=== PATIENT | male | born 1975 | race Caucasian/White ===

== ENCOUNTER 2018-02-04 23:26 | Emergency (ER) | payer SELFPAY ==
[~2018-02-04] VITALS: Ht 185.4 cm; Wt 95.3 kg
[2018-02-04 23:37] VITALS: BP 156/98
[2018-02-05 00:16] LABS: BASOPHILS % (AUTO) 1.1 % (0.0-2.0); EOSINOPHILS % (AUTO) 0.4 % (0.0-3.0); HEMATOCRIT 47.1 % (42.0-52.0); HEMOGLOBIN 16.2 G/DL (14.2-18.0); LYMPHOCYTES % (AUTO) 22.9 % (20.0-45.0); MEAN CORPUSCULAR VOLUME 92 FL (80-99); MONOCYTES % (AUTO) 6.5 % (1.0-10.0); PLATELET COUNT 187 K/UL (150-450); RED BLOOD COUNT 5.09 M/UL (4.70-6.10); RED CELL DISTRIBUTION WIDTH 13.2 % (11.6-14.8); WHITE BLOOD COUNT 8.8 K/UL (4.8-10.8)
[2018-02-05 00:28] LABS: ANION GAP 9 mmol/L (5-15); BLOOD UREA NITROGEN 17 mg/dL (7-18); CALCIUM 8.2 MG/DL (8.5-10.1); CARBON DIOXIDE 32 MMOL/L (21-32); CHLORIDE 105 MMOL/L (98-107); POTASSIUM 3.7 MMOL/L (3.5-5.1); SODIUM 145 MMOL/L (136-145)
[2018-02-05 00:32] LABS: ALANINE AMINOTRANSFERASE 36 U/L (12-78); ALBUMIN 3.9 G/DL (3.4-5.0); ALBUMIN/GLOBULIN RATIO 1.1 (1.0-2.7); ALKALINE PHOSPHATASE 67 U/L (46-116); ASPARTATE AMINO TRANSFERASE 31 U/L (15-37); BILIRUBIN,TOTAL 0.3 MG/DL (0.2-1.0)
--- NOTE | 2018-02-05 01:39 | Emergency Room Report ---
History of Present Illness General Chief Complaint: Alcohol Intoxication Source: Friend, EMS Present Illness HPI Is a 42-year-old male brought in by EMS for alcohol intoxication. 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 Also has a history of alcohol abuse with previous withdrawal symptoms. He was out drinking with his friends. His friend said that he was drinking a whole lot of liquor. Patient felt uncomfortable staying at home because he were about DTs and withdrawal. So he has decided to call 911. Patient has no trauma. History is limited on him because of his intoxication. Allergies: Coded Allergies: No Known Allergies (Unverified , 02/04/18) Patient History Past Medical History: see triage record, old chart reviewed Past Surgical History: other Pertinent Family History: none Social History: Denies: smoking Immunizations: other Reviewed Nursing Documentation: PMH: Agreed; PSxH: Agreed Nursing Documentation-PMH Past Medical History: No History, Except For Review of Systems Eye: Denies: eye pain, blurred vision ENT: Denies: ear pain, nose congestion, throat swelling Respiratory: Denies: cough, shortness of breath Cardiovascular: Denies: chest pain, palpitations Gastrointestinal: Denies: abdominal pain, diarrhea, nausea, vomiting Musculoskeletal: Denies: back pain, joint pain Skin: Denies: rash Neurological: Denies: headache, numbness Endocrine: Denies: increased thirst, increased urine Hematologic/Lymphatic: Denies: easy bruising All Other Systems: negative except mentioned in HPI Physical Exam Vital Signs Date Time Temp Pulse Resp B/P (MAP) Pulse Ox O2 Delivery O2 Flow Rate FiO2 02/04/18 23:24 98.9 98 16 156/98 98 Room Air 99.0 vitals with high blood pressure Sp02 EP Interpretation: reviewed, normal General Appearance: well appearing, no apparent distress, alert, lethargic - Secondary to intoxication Head: normocephalic, atraumatic Eyes: bilateral eye PERRL, bilateral eye EOMI ENT: hearing grossly normal, normal pharynx Neck: full range of motion, supple, no meningismus Respiratory: chest non-tender, lungs clear, normal breath sounds Cardiovascular #1: regular rate, rhythm, no murmur Gastrointestinal: normal bowel sounds, non tender, no mass, no organomegaly, no bruit, non-distended Musculoskeletal: back normal, normal range of motion Neurologic: grossly normal Psychiatric: mood/affect normal Skin: warm/dry Medical Decision Making Diagnostic Impression: Primary Impression: Acute alcoholic intoxication Qualified Codes: F10.929 - Alcohol use, unspecified with intoxication, unspecified ER Course Patient with alcohol intoxication. No evidence of suicidal thoughts or homicidal thought. We'll observe until clinical sobriety. We'll probably put him on Librium on discharge. Last Vital Signs Date Time Temp Pulse Resp B/P (MAP) Pulse Ox O2 Delivery O2 Flow Rate FiO2 02/04/18 23:37 99.0 16 156/98 98 Room Air 99.0 02/04/18 23:24 98 Status: improved Disposition: HOME, SELF-CARE Condition: Stable Scripts Chlordiazepoxide (Chlordiazepoxide HCl) 25 Mg Capsule 25 MG ORAL THREE TIMES A DAY, #21 CAP 0 Refills Prov: SOLANGE AGUSTIN M.D. 02/05/18 Referrals: NOT CHOSEN IPA/,REFERRING (PCP) Patient Instructions: Alcohol Intoxication, [id number] Additional Instructions: Abstain from alcohol. Go to rehabilitation[facility] Return if worse. SOLANGE AGUSTIN M.D. Feb 05, 2018 01:39
[2018-02-05] MEDS ORDERED: LIBRIUM25 MG ORAL (01:40)
[2018-02-05 06:50] VITALS: BP 116/78
== END 2018-02-05 06:50 | disposition home or self-care (01) ==
LOC: EDBD 23:26 → EMR 23:41
DX: F10.929 Alcohol use, unspecified with intoxication, unspecified (principal); F43.10 Post-traumatic stress disorder, unspecified
CPT/HCPCS: 36415; 80053; 85025; 96360; 99284; G0480; 80329

== ENCOUNTER 2018-03-01 22:56 | Emergency (ER) | payer SELFPAY ==
[~2018-03-01] VITALS: Ht 177.8 cm; Wt 83.9 kg
[~2018-03-01 22:56] MED LIST: LIBRIUM25 MG ORAL
[2018-03-01 23:05] VITALS: BP 133/86
[2018-03-01] MEDS ORDERED: LORazepam Inj 2mg/ml 1ml IV ONE (23:45)
[2018-03-02 00:05] LABS: BASOPHILS % (AUTO) 1.7 % (0.0-2.0); EOSINOPHILS % (AUTO) 0.1 % (0.0-3.0); HEMATOCRIT 52.5 % (42.0-52.0); LYMPHOCYTES % (AUTO) 29.8 % (20.0-45.0); MEAN CORPUSCULAR VOLUME 93 FL (80-99); MONOCYTES % (AUTO) 7.5 % (1.0-10.0); NEUTROPHILS % (AUTO) 60.9 % (45.0-75.0); PLATELET COUNT 385 K/UL (150-450); RED BLOOD COUNT 5.67 M/UL (4.70-6.10); RED CELL DISTRIBUTION WIDTH 12.1 % (11.6-14.8); WHITE BLOOD COUNT 6.6 K/UL (4.8-10.8)
[2018-03-02 00:07] LABS: ANION GAP 8 mmol/L (5-15); BLOOD UREA NITROGEN 11 mg/dL (7-18); CALCIUM 8.8 MG/DL (8.5-10.1); CARBON DIOXIDE 33 MMOL/L (21-32); CHLORIDE 94 MMOL/L (98-107); CREATININE 0.9 MG/DL (0.55-1.30); POTASSIUM 3.4 MMOL/L (3.5-5.1); SODIUM 134 MMOL/L (136-145)
[2018-03-02 00:09] LABS: HEMOGLOBIN 18.4 G/DL (14.2-18.0)
[2018-03-02 00:12] LABS: ALANINE AMINOTRANSFERASE 32 U/L (12-78); ALBUMIN 4.3 G/DL (3.4-5.0); ALKALINE PHOSPHATASE 55 U/L (46-116); ASPARTATE AMINO TRANSFERASE 29 U/L (15-37); BILIRUBIN,TOTAL 0.3 MG/DL (0.2-1.0)
--- NOTE | 2018-03-02 00:39 | Emergency Room Report ---
History of Present Illness General Chief Complaint: Alcohol Intoxication Source: Patient Present Illness HPI 42-year-old male presents ED for evaluation. States that he was drinking for 7 days straight and stop drinking today. States he feels shaky and feels like he is going through withdrawals. Denies drug use. Denies suicidal or homicidal ideation. Denies hearing voices. No other aggravating relieving factors. Denies any other associated symptoms Allergies: Coded Allergies: No Known Allergies (Unverified , 03/01/18) Patient History Past Medical History: HTN, psych hx Past Surgical History: none Pertinent Family History: none Social History: Reports: alcohol use; Denies: smoking, drug use Immunizations: UTD Reviewed Nursing Documentation: PMH: Agreed; PSxH: Agreed Nursing Documentation-PMH Past Medical History: No History, Except For Hx Hypertension: Yes Review of Systems All Other Systems: negative except mentioned in HPI Physical Exam Vital Signs Date Time Temp Pulse Resp B/P (MAP) Pulse Ox O2 Delivery O2 Flow Rate FiO2 03/01/18 22:59 98.6 102 16 133/86 96 98.6 03/01/18 23:05 Room Air Sp02 EP Interpretation: reviewed, normal General Appearance: no apparent distress, alert, GCS 15, non-toxic Head: normocephalic, atraumatic Eyes: bilateral eye normal inspection, bilateral eye PERRL ENT: hearing grossly normal, normal pharynx, no angioedema, normal voice Neck: full range of motion, supple/symm/no masses Respiratory: chest non-tender, lungs clear, normal breath sounds, speaking full sentences Cardiovascular #1: regular rate, rhythm, no edema Cardiovascular #2: 2+ carotid (R), 2+ carotid (L), 2+ radial (R), 2+ radial (L) , 2+ dorsalis pedis (R), 2+ dorsalis pedis (L) Gastrointestinal: normal bowel sounds, non tender, soft, non-distended, no guarding, no rebound Rectal: deferred Genitourinary: normal inspection, no CVA tenderness Musculoskeletal: back normal, gait/station normal, normal range of motion, non- tender Neurologic: alert, oriented x3, responsive, motor strength/tone normal, sensory intact, speech normal Psychiatric: judgement/insight normal, memory normal, mood/affect normal, no suicidal/homicidal ideation Reflexes: 3+ bicep (R), 3+ bicep (L), 3+ tricep (R), 3+ tricep (L), 3+ knee (R) , 3+ knee (L) Skin: normal color, no rash, warm/dry, well hydrated Lymphatic: no adenopathy Medical Decision Making Diagnostic Impression: Primary Impression: Acute alcoholic intoxication Qualified Codes: F10.929 - Alcohol use, unspecified with intoxication, unspecified ER Course Hospital Course 42-year-old male presents ED complaining of shaking, stating he is in withdrawal. Chronic history of alcohol use Differential diagnoses include: Alcohol intoxication, drug abuse, opioid withdrawal, alcohol withdrawal, dehydration, drug seeking behavior Clinical course Patient placed on stretcher. On language specialist. After initial history and physical I ordered labs, IV fluids, Ativan Labs reviewed-electrolytes okay, hemoglobin/hematocrit stable, no leukocytosis, alcohol level > 400, aspirin/Tylenol levels negative given librium. no signs of acute withdrawal or DTs. patient can be safely discharged to home Patient states he will follow-up with the [facility] for detox services. declined any referrals here i. I feel this is a highly complex case requiring extensive working including EKG/Rhythm strip, Xray/CT/US, Blood/urine lab work, repeat exams while in ED, and administration of strong opiates/narcotics for pain control, admission to hospital or close patient follow up. Diagnosis - alcohol intoxication Stable and discharged to home with prescription for Librium. Followup with PMD. Return to ED if symptoms recur or worsen Labs Test 03/01/18 23:53 White Blood Count 6.6 K/UL (4.8-10.8) Red Blood Count 5.67 M/UL (4.70-6.10) Hemoglobin 18.4 G/DL (14.2-18.0) Hematocrit 52.5 % (42.0-52.0) Mean Corpuscular Volume 93 FL (80-99) Mean Corpuscular Hemoglobin 32.4 PG (27.0-31.0) Mean Corpuscular Hemoglobin Concent 34.9 G/DL (32.0-36.0) Red Cell Distribution Width 12.1 % (11.6-14.8) Platelet Count 385 K/UL (150-450) Mean Platelet Volume 6.5 FL (6.5-10.1) Neutrophils (%) (Auto) 60.9 % (45.0-75.0) Lymphocytes (%) (Auto) 29.8 % (20.0-45.0) Monocytes (%) (Auto) 7.5 % (1.0-10.0) Eosinophils (%) (Auto) 0.1 % (0.0-3.0) Basophils (%) (Auto) 1.7 % (0.0-2.0) Sodium Level 134 MMOL/L (136-145) Potassium Level 3.4 MMOL/L (3.5-5.1) Chloride Level 94 MMOL/L (98-107) Carbon Dioxide Level 33 MMOL/L (21-32) Anion Gap 8 mmol/L (5-15) Blood Urea Nitrogen 11 mg/dL (7-18) Creatinine 0.9 MG/DL (0.55-1.30) Estimat Glomerular Filtration Rate > 60 mL/min (>60) Glucose Level 135 MG/DL (74-106) Calcium Level 8.8 MG/DL (8.5-10.1) Total Bilirubin 0.3 MG/DL (0.2-1.0) Aspartate Amino Transf (AST/SGOT) 29 U/L (15-37) Alanine Aminotransferase (ALT/SGPT) 32 U/L (12-78) Alkaline Phosphatase 55 U/L (46-116) Total Protein 8.5 G/DL (6.4-8.2) Albumin 4.3 G/DL (3.4-5.0) Globulin 4.2 g/dL Albumin/Globulin Ratio 1.0 (1.0-2.7) Salicylates Level 0.3 ug/mL (2.8-20) Acetaminophen Level < 2 MCG/ML (10-30) Serum Alcohol 402 mg/dL Last Vital Signs Date Time Temp Pulse Resp B/P (MAP) Pulse Ox O2 Delivery O2 Flow Rate FiO2 03/01/18 23:05 98.6 102 16 133/86 96 Room Air 98.6 Status: improved Disposition: HOME, SELF-CARE Condition: Stable Scripts Chlordiazepoxide (Chlordiazepoxide HCl) 25 Mg Capsule 25 MG ORAL THREE TIMES A DAY, #21 CAP 0 Refills Prov: Tarun Mcnally MD 03/02/18 Referrals: NOT CHOSEN IPA/,REFERRING (PCP) Tarun Mcnally MD Mar 02, 2018 00:39
[2018-03-02] MEDS ORDERED: LIBRIUM25 MG ORAL (01:24)
[2018-03-02 01:30] VITALS: BP 128/81
[2018-03-02] MEDS ORDERED: chlordiazePOXIDE 25mg Cap ORAL ONE (01:30)
== END 2018-03-02 01:33 | disposition home or self-care (01) ==
LOC: EMR 23:20
DX: F10.129 Alcohol abuse with intoxication, unspecified (principal); I10 Essential (primary) hypertension
CPT/HCPCS: 36415; 80053; 85025; 96361; 96374; 99284; G0480; 80329

== ENCOUNTER 2018-05-26 12:09 | Inpatient (IN) | payer OTHER ==
[~2018-05-26] VITALS: Ht 175.3 cm; Wt 81.6 kg
--- NOTE | 2018-05-26 12:09 | NUR ---
ED Nurse Note: Pt came in brought by ALICIA, accomplanied by [facility] due to pt stating to his roommate that he "wants to end it all." Pt has a hx of brain tumors on the left side of the brain and takes meds for seziures. Pt is A + O x4. When asked, what triggered it, pt stated to EMS that there is no trigger. Pt has no plan on how to commit suicide. EMELY and [facility] at the bedside.
[2018-05-26 12:13] VITALS: BP 165/99
--- NOTE | 2018-05-26 12:23 | NUR ---
ED Nurse Note: Pt went down to CT.
--- NOTE | 2018-05-26 12:27 | Emergency Room Report ---
History of Present Illness General Chief Complaint: Behavioral Complaint Source: EMS (Mike Tubbs) Present Illness HPI 42-year-old male patient presents the ER brought in by ambulance and police on 5150 hold. EMS reports that patient was at home drinking alcohol when he told his roommate that he wanted to commit suicide. EMS states that patient did not report a plan at that time. Reports patient has a history of seizure disorder and PTSD; also states history of tumor in his head that causes seizures. Patient reports that he is not having any acute complaints at this time. Denies hitting his head or loss of consciousness. Reports that he has thoughts of hurting himself. Patient does not know what seizure medications he takes, states he took the medication today however. States he had a seizure 2 hours ago, this was not confirmed by EMS. Denies fever, chest pain, shortness of breath, abdominal pain. Reports that he wants to drink until it "stops hurting ". States that he drank 3 1/5 bottles of vodka today starting this morning. (Mike Tubbs) Allergies: Coded Allergies: No Known Allergies (Unverified , 03/01/18) Patient History Past Medical History: see triage record Reviewed Nursing Documentation: PMH: Agreed; PSxH: Agreed (Mike Tubbs) Nursing Documentation-PMH Past Medical History: No History, Except For Hx Cardiac Problems: No - CEREBRAL TUMOR, SEIZURE, PTSD Hx Hypertension: Yes (Mike Tubbs) Review of Systems All Other Systems: negative except mentioned in HPI (Mike Tubbs) Physical Exam Vital Signs Date Time Temp Pulse Resp B/P (MAP) Pulse Ox O2 Delivery O2 Flow Rate FiO2 05/26/18 12:05 100 18 151/110 100 Room Air 05/26/18 12:13 100 05/26/18 12:13 97.5 Sp02 EP Interpretation: reviewed, normal General Appearance: well appearing, no apparent distress, alert, GCS 15, non- toxic Head: normocephalic, atraumatic Eyes: bilateral eye normal inspection, bilateral eye PERRL ENT: hearing grossly normal, normal pharynx, no angioedema, normal voice, uvula midline, moist mucus membranes Neck: full range of motion Respiratory: lungs clear, normal breath sounds, no rhonchi, no respiratory distress, no accessory muscle use, no wheezing, speaking full sentences Cardiovascular #1: regular rate, rhythm, no edema Gastrointestinal: non tender, soft, no mass, non-distended, no guarding, no rebound Genitourinary: no CVA tenderness Musculoskeletal: back normal, digits/nails normal, gait/station normal, normal range of motion, non-tender Neurologic: alert, oriented x3, responsive, 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 Mcnally is my supervising Physician whom patient management has been discussed with. (Mike Tubbs) Diagnostic Impression: Primary Impression: Behavioral disorder Additional Impression: Infarction of parietal lobe ER Course Pt. presents to the ED c/o brought in by ambulance on 5150 hold. Ddx considered but are not limited to anxiety, depression, drug use, alcohol use , behavioral disorder. No focal neuro deficits, cranial nerves intact as tested. Vital signs: are WNL, pt. is afebrile Ordered labs, urine drug screen, serum alcohol. ER COURSE: Ordered a sitter for the patient. CBC and CMP unremarkable, no elevation in WBCs UDS positive for benzodiazepines, remained negative serum alcohol elevated, provided patient with IV fluids. Salicylates, acetaminophen level WNL Patient observed walking around the ER independently without difficulty. CT head shows possible subacute infarct. Discuss patient with supervising physician Dr. Mcnally, will admit patient for subacute infarct and behavioral disorder. Patient to be admitted to Dr. Pink. - Please note that this Emergency Department Report was dictated using [employer] nurse technology software, occasionally this can lead to erroneous entry secondary to interpretation by the dictation equipment. [facility] Test 05/26/18 12:37 05/26/18 16:17 White Blood Count 5.2 K/UL (4.8-10.8) Red Blood Count 5.11 M/UL (4.70-6.10) Hemoglobin 16.4 G/DL (14.2-18.0) Hematocrit 49.0 % (42.0-52.0) Mean Corpuscular Volume 96 FL (80-99) Mean Corpuscular Hemoglobin 32.0 PG (27.0-31.0) Mean Corpuscular Hemoglobin Concent 33.4 G/DL (32.0-36.0) Red Cell Distribution Width 12.6 % (11.6-14.8) Platelet Count 348 K/UL (150-450) Mean Platelet Volume 5.1 FL (6.5-10.1) Neutrophils (%) (Auto) 51.0 % (45.0-75.0) Lymphocytes (%) (Auto) 35.0 % (20.0-45.0) Monocytes (%) (Auto) 10.5 % (1.0-10.0) Eosinophils (%) (Auto) 0.2 % (0.0-3.0) Basophils (%) (Auto) 3.4 % (0.0-2.0) Sodium Level 139 MMOL/L (136-145) Potassium Level 4.3 MMOL/L (3.5-5.1) Chloride Level 98 MMOL/L (98-107) Carbon Dioxide Level 26 MMOL/L (21-32) Anion Gap 15 mmol/L (5-15) Blood Urea Nitrogen 21 mg/dL (7-18) Creatinine 1.1 MG/DL (0.55-1.30) Estimat Glomerular Filtration Rate > 60 mL/min (>60) Glucose Level 132 MG/DL (74-106) Calcium Level 8.6 MG/DL (8.5-10.1) Total Bilirubin 0.4 MG/DL (0.2-1.0) Aspartate Amino Transf (AST/SGOT) 46 U/L (15-37) Alanine Aminotransferase (ALT/SGPT) 70 U/L (12-78) Alkaline Phosphatase 55 U/L (46-116) Total Protein 7.8 G/DL (6.4-8.2) Albumin 4.0 G/DL (3.4-5.0) Globulin 3.8 g/dL Albumin/Globulin Ratio 1.1 (1.0-2.7) Salicylates Level 2.2 ug/mL (2.8-20) Acetaminophen Level < 2 MCG/ML (10-30) Serum Alcohol 404 mg/dL Urine Opiates Screen Negative (NEGATIVE) Urine Barbiturates Screen Negative (NEGATIVE) Phencyclidine (PCP) Screen Negative (NEGATIVE) Urine Amphetamines Screen Negative (NEGATIVE) Urine Benzodiazepines Screen Positive (NEGATIVE) Urine Cocaine Screen Negative (NEGATIVE) Urine Marijuana (THC) Screen Negative (NEGATIVE) (Mike Tubbs) ER Course See above note. Allegedly has a brain tumor scheduled for further evaluation at [facility]. Patient with non-focal neurologic exam. CT with subacute infarct. On 5150 for suicidal ideation. Discussed with Dr. Pink and Dr. Montiel. Also Operations Support Analyst at [facility] wanted transfer but no beds at this time. She states difficulty to withdraw patient. Consider transfer for detox when bed available . (Mike Gil MD) CT/MRI/US Diagnostic Results CT/MRI/US Diagnostic Results : Imaging Test Ordered: CT head Impression Small cortical infarct probably subacute high right parietal lobe. Correlate clinically. (Mike Tubbs) Last Vital Signs Date Time Temp Pulse Resp B/P (MAP) Pulse Ox O2 Delivery O2 Flow Rate FiO2 05/26/18 12:13 97.5 99 22 165/99 100 Room Air 05/26/18 12:13 100 (Mike Tubbs) Disposition: ADMITTED INPATIENT Condition: Serious Mike Tubbs May 26, 2018 12:27 Mike Gil MD May 26, 2018 17:20
--- NOTE | 2018-05-26 12:32 | NUR ---
ED Nurse Note: Pt came back from CT.
--- NOTE | 2018-05-26 12:40 | NUR ---
ED Nurse Note: Blood has been collected and sent to lab.
--- NOTE | 2018-05-26 13:09 | Diagnostic Imaging Report ---
Indication: Headache Technique: Contiguous 5 mm thick transaxial imaging of the head obtained in a Siemens Sensation [address] scanner. Soft tissue and bone windows generated. Automatic Exposure Control was utilized. Total Dose length Product (DLP): 1411.[address] Dose Index Volume (CTDIvol): 70.38 mGy Comparison: none Findings: A small area of abnormal cortical low attenuation demonstrated within the high right parietal lobe, transaxial images 25-27. Findings may represent subacute infarct. Correlate clinically. There is no acute hemorrhage. There is no midline shift. Ventricles and basal cisterns appear normal. Osseous structures appear unremarkable. IMPRESSION: Small cortical infarct probably subacute high right parietal lobe. Correlate clinically. The CT scanner at [facility] is accredited by the [employer] and the scans are performed using dose optimization techniques as appropriate to a performed exam including Automatic Exposure control.
[2018-05-26 13:13] LABS: BASOPHILS % (AUTO) 3.4 % (0.0-2.0); EOSINOPHILS % (AUTO) 0.2 % (0.0-3.0); HEMOGLOBIN 16.4 G/DL (14.2-18.0); MEAN CORPUSCULAR VOLUME 96 FL (80-99); MONOCYTES % (AUTO) 10.5 % (1.0-10.0); PLATELET COUNT 348 K/UL (150-450); RED BLOOD COUNT 5.11 M/UL (4.70-6.10); RED CELL DISTRIBUTION WIDTH 12.6 % (11.6-14.8); WHITE BLOOD COUNT 5.2 K/UL (4.8-10.8)
[2018-05-26 13:20] LABS: ANION GAP 15 mmol/L (5-15); BLOOD UREA NITROGEN 21 mg/dL (7-18); CALCIUM 8.6 MG/DL (8.5-10.1); CARBON DIOXIDE 26 MMOL/L (21-32); CHLORIDE 98 MMOL/L (98-107); CREATININE 1.1 MG/DL (0.55-1.30); POTASSIUM 4.3 MMOL/L (3.5-5.1); SODIUM 139 MMOL/L (136-145)
[2018-05-26 13:26] LABS: ALANINE AMINOTRANSFERASE 70 U/L (12-78); ALBUMIN/GLOBULIN RATIO 1.1 (1.0-2.7); ALKALINE PHOSPHATASE 55 U/L (46-116); ASPARTATE AMINO TRANSFERASE 46 U/L (15-37); BILIRUBIN,TOTAL 0.4 MG/DL (0.2-1.0)
--- NOTE | 2018-05-26 16:28 | NUR ---
ED Nurse Note: Urine has been collected and sent to lab.
--- NOTE | 2018-05-26 16:39 | NUR ---
ED Nurse Note: Gave telephone report to DALLAS Zavala.
[2018-05-26] MEDS ORDERED: Milk of Magnesia 30ml Ud ORAL PRN (17:00)
--- NOTE | 2018-05-26 17:02 | NUR ---
ED Nurse Note: Possible tx to [facility].
[2018-05-26 17:40] VITALS: BP 139/97
[2018-05-26] MEDS ORDERED: LEXAPRO20 MG ORAL (17:45)
[2018-05-26] MEDS ORDERED: SEROQUEL100 MG ORAL (17:45)
[2018-05-26] MEDS ORDERED: LISINOPRIL-HCT1 EACH ORAL (17:45)
[2018-05-26] MEDS ORDERED: ATIVAN2 MG ORAL (17:45)
[2018-05-26] MEDS ORDERED: PRAZOSIN HCL1 MG PO (17:45)
--- NOTE | 2018-05-26 17:50 | NUR ---
ED Nurse Note: Transferred pt to unit. No acute distress noted. No pain noted.
--- NOTE | 2018-05-26 17:55 | NUR ---
NURSE NOTES: Received pt awake alert, aox4, no distress. denies pain but states he is anxious. listed home meds (as recorded) and would like ativan, told pt that rn will have to ask for order, pt understood. sacral area clean dry and intact, ambulatory continent. call light within reach. made aware that sitter will be present. when asked re suicidal ideation, pt states "not anymore" pt states history as htn and cerebral tumore Addendum: 05/26/18 at 1812 by ISIDRO MAY RN NURSE NOTES: ALSO PER PT RE TUMOR, HAS APPT FOR REMOVAL JULY 2018
[2018-05-26] MEDS ORDERED: chlordiazePOXIDE 25mg Cap ORAL PRN (19:00)
--- NOTE | 2018-05-26 19:34 | NUR ---
HAND-OFF: Report given to pamela rn, endorsed 1:1 sitter for DTS.
--- NOTE | 2018-05-26 19:34 | NUR ---
NURSE NOTES: Received report from Jayesh Moreno RN. Patient in bed AAO x4 with HOB elevated at semi fowlers, on R/A and is saturating at 95-97% and in no respiratory distress noted at this time. Patient able to verbalize needs and wants appropriately with no difficulty. Safety precaution in place; side rails x2 up, call light within reach, bed in lowest position, brakes and alarm on at all times. No complaints of acute pain at this time, kept comfortable in bed. Cardiac monitoring in place per protocol. Needs and wants anticipated and attended, will continue plan of care and monitor for any changes in condition noted
[2018-05-26] MEDS: LORazepam 1mg tab ORAL PRN (20:10)
--- NOTE | 2018-05-27 03:30 | NUR ---
NURSE NOTES: Patient in bed asleep with no complaints of acute pain at this time, will continue to monitor
[2018-05-27] MEDS: LORazepam 1mg tab ORAL PRN (05:49)
--- NOTE | 2018-05-27 07:53 | NUR ---
HAND-OFF: Report given to Jayesh Aguilar RN. Patient in stable condition, endorsed plan of care
[2018-05-27 08:00] VITALS: BP 139/79
[2018-05-27] MEDS ORDERED: LORazepam Inj 2mg/ml 1ml IV PRN (08:00)
--- NOTE | 2018-05-27 08:17 | NUR ---
Resting in bed, breathing even and unlabored on room air. A+O x4. tele 75 SR. patient has tremors, 8/10 stomach pain and nausea. denies suicide ideation at this time. verbalizes understanding to utilize call light before ambulation. states he is not hungry at this time. call light in reach.
[2018-05-27] MEDS: Aspirin EC 325mg tab ORAL SCH (08:31)
[2018-05-27] MEDS: hydroCHLOROthiazide 12.5mg TAB ORAL SCH (08:31)
[2018-05-27] MEDS: Lisinopril 10mg tab ORAL SCH (08:31)
--- NOTE | 2018-05-27 10:59 | NUR ---
CASE MANAGEMENT:REVIEW BIBA FROM HOME CC: BEHAVORIAL COMPLAINT PMH: PTSD. CEREBRAL TUMOR. SEIZURE SI: SUB ACUTE STROKE 100 18 151/110 100% ON RA BUN+21 AST+46 IS: 1L NS BOLUS CT HEAD TO TELEMETRY UNIT PLAN: SITTER AT BEDSIDE SOCIAL SERVICE CONSULT PSYCH CONSULT
--- NOTE | 2018-05-27 11:07 | NUR ---
[facility] RECEIVED CALL FROM [place] T: [phone] THEY ARE WAITING FOR H&P, PSYCH CONSULT AND SOCIAL SERVICE CONSULT NOTES TO BE FAXED TO THEM PATIENT MUST ALSO BE AGREEABLE TO TRANSFER AWAITING MD NOTES TO MANIFEST IN COMPUTER
[2018-05-27 12:00] VITALS: BP 135/80
--- NOTE | 2018-05-27 12:01 | History & Physical ---
History and Physical History & Physicial HP dictated # [id number] López Pink MD May 27, 2018 12:01
--- NOTE | 2018-05-27 12:31 | Consultation ---
History of Present Illness General Chief Complaint: Behavioral Complaint Present Illness HPI 42-year-old male with hx of substance use d/o, depression and psychotic d/o. The patient presents the ER brought in by ambulance and police on 5150 hold the pt is hearing voices and stated that he was suicidal. the pt is not endorsing any suicidal thoughts currently. He is not manic nor delusional. Allergies: Coded Allergies: No Known Allergies (Unverified , 03/01/18) Medication History Scheduled Chlordiazepoxide (Chlordiazepoxide HCl), 25 MG ORAL THREE TIMES A DAY Escitalopram Oxalate* (Lexapro*), 20 MG ORAL DAILY, (Reported) Lisinopril/Hydrochlorothiazide 10-12.5 Mg Tab (Lisinopril-Hctz 10-12.5 Mg Tab), 1 TAB ORAL DAILY, (Reported) Prazosin Hcl (Prazosin Hcl), 12 MG PO QHS, (Reported) Quetiapine Fumarate* (Seroquel*), 100 MG ORAL DAILY, (Reported) Scheduled PRN Lorazepam* (Ativan*), 2 MG ORAL for For Anxiety, (Reported) Patient History History Provided By: Patient, Medical Record, PMD Healthcare decision maker Resuscitation status Full Code Advanced Directive on File Past Medical/Surgical History Past Medical/Surgical History: (1) Stroke (2) Infarction of parietal lobe (3) Behavioral disorder Review of Systems Psychiatric: Reports: prior hx, anxiety, depressed feelings, emotional problems , hallucinations Physical Exam General Appearance: no apparent distress, alert Neurologic: oriented x 3, responsive, depressed affect, other - AH Last 24 Hour Vital Signs Date Time Temp Pulse Resp B/P (MAP) Pulse Ox O2 Delivery O2 Flow Rate FiO2 05/27/18 09:00 Room Air 05/27/18 08:31 139/79 05/27/18 08:00 97.9 79 20 139/79 (99) 97 05/27/18 04:00 81 05/27/18 00:00 87 05/26/18 21:00 Room Air 05/26/18 20:00 107 05/26/18 17:51 98.1 75 22 135/85 98 Room Air 05/26/18 17:47 Room Air 05/26/18 17:40 98 20 139/97 (111) 99 Intake and Output 05/26/18 05/27/18 19:00 07:00 Intake Total 1200 ml 120 ml Output Total 50 ml Balance 1200 ml 70 ml Intake Oral 200 ml 120 ml IV Total 1000 ml Output Emesis 50 ml # Voids 1 3 Laboratory Tests Test 05/26/18 12:37 05/26/18 16:17 White Blood Count 5.2 K/UL (4.8-10.8) Red Blood Count 5.11 M/UL (4.70-6.10) Hemoglobin 16.4 G/DL (14.2-18.0) Hematocrit 49.0 % (42.0-52.0) Mean Corpuscular Volume 96 FL (80-99) Mean Corpuscular Hemoglobin 32.0 PG (27.0-31.0) H Mean Corpuscular Hemoglobin Concent 33.4 G/DL (32.0-36.0) Red Cell Distribution Width 12.6 % (11.6-14.8) Platelet Count 348 K/UL (150-450) Mean Platelet Volume 5.1 FL (6.5-10.1) L Neutrophils (%) (Auto) 51.0 % (45.0-75.0) Lymphocytes (%) (Auto) 35.0 % (20.0-45.0) Monocytes (%) (Auto) 10.5 % (1.0-10.0) H Eosinophils (%) (Auto) 0.2 % (0.0-3.0) Basophils (%) (Auto) 3.4 % (0.0-2.0) H Sodium Level 139 MMOL/L (136-145) Potassium Level 4.3 MMOL/L (3.5-5.1) Chloride Level 98 MMOL/L (98-107) Carbon Dioxide Level 26 MMOL/L (21-32) Anion Gap 15 mmol/L (5-15) Blood Urea Nitrogen 21 mg/dL (7-18) H Creatinine 1.1 MG/DL (0.55-1.30) Estimat Glomerular Filtration Rate > 60 mL/min (>60) Glucose Level 132 MG/DL (74-106) H Calcium Level 8.6 MG/DL (8.5-10.1) Total Bilirubin 0.4 MG/DL (0.2-1.0) Aspartate Amino Transf (AST/SGOT) 46 U/L (15-37) H Alanine Aminotransferase (ALT/SGPT) 70 U/L (12-78) Alkaline Phosphatase 55 U/L (46-116) Total Protein 7.8 G/DL (6.4-8.2) Albumin 4.0 G/DL (3.4-5.0) Globulin 3.8 g/dL Albumin/Globulin Ratio 1.1 (1.0-2.7) Salicylates Level 2.2 ug/mL (2.8-20) L Acetaminophen Level < 2 MCG/ML (10-30) L Serum Alcohol 404 mg/dL Urine Opiates Screen Negative (NEGATIVE) Urine Barbiturates Screen Negative (NEGATIVE) Phencyclidine (PCP) Screen Negative (NEGATIVE) Urine Amphetamines Screen Negative (NEGATIVE) Urine Benzodiazepines Screen Positive (NEGATIVE) H Urine Cocaine Screen Negative (NEGATIVE) Urine Marijuana (THC) Screen Negative (NEGATIVE) Height (Feet): 5 Height (Inches): 9.00 Weight (Pounds): 180 Medications Current Medications Medications (Trade) Dose Ordered Sig/Josué Route PRN Reason Start Time Stop Time Status Last Admin Dose Admin Acetaminophen (Tylenol) 650 mg Q4H PRN ORAL Mild Pain (Pain Scale 1-3) 05/26/18 16:52 06/25/18 16:51 Aspirin (Ecotrin) 325 mg DAILY ORAL 05/27/18 09:00 06/26/18 08:59 05/27/18 08:31 Chlordiazepoxide (Librium) 25 mg TIDPRN PRN ORAL Agitation 05/26/18 19:00 06/02/18 18:59 05/27/18 04:35 Dextrose (Dextrose 50%) 25 ml Q30M PRN IV Hypoglycemia 05/26/18 17:00 06/25/18 16:59 Dextrose (Dextrose 50%) 50 ml Q30M PRN IV Hypoglycemia 05/26/18 17:00 06/25/18 16:59 Escitalopram Oxalate (Lexapro) 20 mg DAILY ORAL 05/27/18 09:00 06/26/18 08:59 05/27/18 08:32 Famotidine (Pepcid) 40 mg DAILY ORAL 05/27/18 09:00 06/26/18 08:59 05/27/18 08:32 Hydrochlorothiazide (Hydrodiuril) 12.5 mg DAILY ORAL 05/27/18 09:00 06/26/18 08:59 05/27/18 08:31 Lisinopril (Zestril) 10 mg DAILY ORAL 05/27/18 09:00 06/26/18 08:59 05/27/18 08:31 Lorazepam (Ativan 2mg/ml 1ml) 2 mg Q6H PRN IV For Anxiety 05/27/18 08:00 06/03/18 07:59 Magnesium Hydroxide (Mom) 30 ml HSPRN PRN ORAL Constipation 05/26/18 17:00 06/25/18 16:59 Non-Formulary Medication (Non-Formulary Med) 1 ea DAILY ORAL 05/27/18 09:00 06/26/18 08:59 UNV Quetiapine Fumarate (SEROquel) 100 mg DAILY ORAL 05/27/18 09:00 06/26/18 08:59 05/27/18 08:32 Temazepam (Restoril) 15 mg DAILYPRN PRN ORAL Insomnia 05/26/18 17:00 06/02/18 16:59 Assessment/Plan Problem List: (1) Substance use disorder ICD Codes: F19.90 - Other psychoactive substance use, unspecified, uncomplicated SNOMED: 94545295 (2) Psychotic disorder ICD Codes: F29 - Unspecified psychosis not due to a substance or known physiological condition SNOMED: 56996189 Status: stable Assessment/Plan lexapro 20mg qam dc seroquel risperdal 2mg qhs the pt maybe discharged after medical clearance Bettye Montiel MD May 27, 2018 12:31
--- NOTE | 2018-05-27 13:46 | NUR ---
Social Work This Sw received a consult due to possible suicidal thoughts. This Sw met with patient who explained he was intoxicated, recognizing he is in need of substance abuse treatment (does not verbalize any suicidal ideations at this time). Patient stating he is on disability, currently living with his friend, Gregorio. Patient requesting this Sw to contact friend to bring in his phone and clothing @ phone number [phone]). This Sw left message for friend to contact this SW. Patient explains he plans to go to [facility] (through the [facility] upon discharge. [facility] was here to see patient, assisting with this program. Patient does not require any other resources from this Sw at this time. Psychiatry to see patient, as needed.
[2018-05-27] MEDS: Thiamine 100mg tab ORAL SCH (15:11)
[2018-05-27 16:00] VITALS: BP 130/78
--- NOTE | 2018-05-27 19:04 | NUR ---
HAND-OFF: Report given to DALLAS Reed.
--- NOTE | 2018-05-27 19:05 | NUR ---
NURSE NOTES: Received report from Jayesh Aguilar RN. Patient in bed AAO x4 with HOB elevated at semifowlers, no complaints of acute pain at this time. Able to verbalize with no difficulty, no S/S of respiratory distress and SP02 at 94-96% in R/A. Safety precaution in place; siderails x3 up, call light within reach, bed in lowest position, brakes and alarm on at all times. Kept clean, dry, and comfortable in bed at all times. Needs and wants anticipated and attended, will continue plan of care and monitor for any changes noted
[2018-05-27 20:00] VITALS: BP 138/87
[2018-05-27] MEDS ORDERED: Milk of Magnesia 30ml Ud ORAL PRN (20:15)
--- NOTE | 2018-05-27 21:24 | Consultation ---
Consult Note Consult Note NEUROLOGY CONSULTATION: Full note dictated #[id number] 42 y/o, RH, CM with PH of HTN, PTSD and depression. He also has a H/O binge drinking. He was recently having some dizziness and unsteadiness on his feet as a result of which he had a CT of the brain done at the [facility]. A lesion was discovered in the right parietal brain. He then had a MRI of the brain which revealed a tumor. Plans are to have surgery for the tumor in July 2018. He was drinking 1/2 a gallon of Vodka for a few days. He was behaving in an erratic manner and his room-mate called the paramedics and he was brought to the [facility] ER on 05/26/18 and admitted. ON EXAM: Problems with memory. No focal or lateralizing findings. 7-8 Hz tremor of outstretched hands. Wide based stance & gait. IMPRESSION: Alcohol intoxication with level of 404 mg/dl on admission. Now with alcohol withdrawal symptoms. Brain lesion most probably tumor - pathology still unknown. REC: Management of alcohol withdrawal. Follow up with Neurologist and Neurosurgeon at the [facility] for brain biopsy as planned. Leif Finnegan M.D., M.S.P.H. Leif Finnegan MD May 27, 2018 21:24
[2018-05-28] VITALS: BP 124/76
--- NOTE | 2018-05-28 00:42 | Consultation ---
DATE OF CONSULTATION: 05/27/2018 NEUROLOGY CONSULTATION CONSULTING PHYSICIAN: Leif Finnegan M.D. REQUESTING PHYSICIAN: López Pink M.D. HISTORY: Mr. Will Freeman is a 42-year-old, right-handed, gentleman, who does have a past history of hypertension, posttraumatic stress disorder, and depression. He also has a long history of binge alcohol drinking. He was recently having some dizziness and unsteadiness on his feet and as a result of that, he presented to his doctors at the [facility]. A CT scan of the brain was done and a lesion was discovered in the right parietal brain. He then had an MRI of the brain done which revealed a tumor. Plans are to have surgery for biopsy of the tumor in July 2018. He denies any associated weakness on one side or the other, numbness on one side or the other, problems with speech, problems with language, problems with vision, and the only symptoms that he experienced with his brain mass was some dizziness and unsteadiness. He was functioning relatively well until the irena when he started to drink half a gallon of vodka for a few days. On 05/26/2018, he was behaving in an erratic fashion and as a result of that his roommate called the paramedics. He was brought into the [facility] emergency room. On being evaluated in the emergency room, he had a blood alcohol level of 404 mg/dL. He has since been admitted to the hospital and feels better, but at this point in time, he feels quite tremulous and sweaty. He has withdrawn from alcohol in the past and he feels that he is undergoing alcohol withdrawal at this point in time. He states that the mind is quite clear and he denies any other neurological symptoms at this time. PAST MEDICAL HISTORY: Significant for hypertension, posttraumatic stress disorder, depression, alcohol abuse, and recently diagnosed brain mass. FAMILY HISTORY: Nothing significant as per the patient. PERSONAL HISTORY: Home: He lives with a roommate. 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 ' Habits: He denies use of tobacco or illicit drugs but does binge drink from time to time. MEDICATIONS: Risperidone, temazepam, milk of magnesia, Valium, thiamine, folic acid, aspirin, famotidine, Lexapro, lisinopril, hydrochlorothiazide, Librium, and Tylenol. PHYSICAL EXAMINATION: GENERAL: He is a well-developed, well-nourished, pleasant gentleman, lying in bed, in no acute distress. VITAL SIGNS: Pulse 73/minute and regular, blood pressure 130/78 mmHg, respirations 20/minute, and temperature 98.2 degrees Fahrenheit. HEAD: Normocephalic and atraumatic. EENT: Examination benign. NECK: No neck rigidity was observed. NEUROLOGICAL EXAMINATION: MENTAL STATUS EXAMINATION: He was awake and alert. He was oriented to person, place, and time. He was able to recall 3/3 words immediately, after 1 minute and after 3 minutes on the second trial. He was able to remember presidents Trump through Rooney Willie, but could not remember presidents prior to that. His mathematical skills were fairly good. His visuospatial function was preserved. SPEECH: He had no dysarthria. LANGUAGE: He had no aphasia. CRANIAL NERVE EXAMINATION: II: The visual oquendo were intact on confrontation testing. III, IV & : The external ocular movements were full and the pupils 3 mm in diameter, equal, round, regular, and reactive to light. V: He had normal facial sensations, and the temporales, masseters, and pterygoids functioned normally. VII: He had normal facial expressions and no facial asymmetry. VIII: He was able to hear well bilaterally and had no nystagmus. IX: The palate moved symmetrically on phonation. X: He had no hoarseness of voice. XI: The sternocleidomastoids and trapezii functioned normally. XII: The tongue was in the midline without any fasciculations or atrophy. MOTOR SYSTEM: The tone was normal in all four extremities. Examination of muscle mass revealed no focal wasting. Examination of power revealed G 5/5 power in all muscle groups. SENSORY EXAMINATION: He had intact sensations to pinprick, light touch, and graphesthesia. COORDINATION: He performed well on [id number]-[id number] and iogi-xi-youx testing. On Romberg test, he swayed, but did not fall to one side or the other. REFLEXES: 1+ and bilaterally symmetrical at the biceps, triceps, brachioradialis, knees, 0 at both ankles. The plantar responses were flexor bilaterally. STANCE: He had a minimally wide-based, but stable stance. GAIT: He walked with a minimally wide-based, but stable gait. Abnormal movements: Tremor (7-8 Hz): G trace/4 at rest increasing to G 1/4 with effort. DIAGNOSTIC IMPRESSION: 1. Mr. Will Freeman is a 42-year-old, right-handed, gentleman, who does have a past history of hypertension, posttraumatic stress disorder, and depression, who from time to time binge drinks. He has recently also been diagnosed with a brain mass, the exact pathology of which is unknown at this point in time. He was binge drinking for a few days and then hospitalized for behaving in an erratic manner. At this point in time, he feels relatively well except for feeling anxious, tremulous, and sweaty. 2. On neurological examination at this time, he does have problems with recent and remote memory, but no focal or lateralizing findings. He does have a 7- 8 Hz tremor of the outstretched hand. He also stands with a wide base and walks with a wide base. 3. The CT scan of the brain without contrast reveals a lesion in the high right parietal area. 4. Laboratory data obtained thus far have revealed a relatively normal CBC. A chemistry panel with a BUN elevated to 21, glucose elevated to 132 and AST elevated at 46. A toxicology screen which reveals a serum alcohol level of 404 mg/dL. 5. The patient's history, neurological examination, and laboratory data associated with his imaging studies are most compatible with alcohol intoxication with level of 404 mg/dL on admission, and now alcohol withdrawal symptoms. 6. 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 RECOMMENDATIONS: 1. Management of alcohol withdrawal. 2. The patient was instructed to follow up with his neurologist and neurosurgeon at the [facility] as soon as possible. 3. Agree with a brain biopsy as planned as the patient has been told that his MRI imaging is consistent with tumor. 4. The patient should be observed closely until his symptoms of alcohol withdrawal improve. Thank you for entrusting me with the care of Mr. Freeman. I shall follow him with you. Leif Finnegan M.D., M.S.P.H. DR: aMry JOB#: [id number] MTDD
--- NOTE | 2018-05-28 00:42 | History and Physical Report ---
DATE OF ADMISSION: 05/26/2018 CHIEF COMPLAINT: The patient came to the emergency room after drinking alcohol and having suicidal thoughts. HISTORY OF PRESENT ILLNESS: This is a 42-year-old white male, who was brought into the emergency room by ambulance and police on 5150 hold. The patient had suicidal thoughts. He said that he drank half a gallon of vodka because he wanted to kill himself. He states that about a month ago he was told in the [facility] that he has a brain tumor and they have to take it out. The patient has had history of depression, posttraumatic stress disease from being in [place]. He stated he has had these symptoms since 2007 when he came back. PAST MEDICAL HISTORY: The patient has also history of seizures, apparently this is alcohol related and history of hypertension. MEDICATIONS: Reviewed in the EMR. SOCIAL HISTORY: The patient usually drinks a pint of vodka every day. He was before, but is from his and kids. ALLERGIES: No known drug allergies. REVIEW OF SYSTEMS: Noncontributory. PHYSICAL EXAMINATION: GENERAL: The patient is a 42-year-old male, in no acute distress. VITAL SIGNS: Blood pressure is 139/79, pulse 79, respirations 20, and temperature 97.9. HEENT: [place] conjunctivae. Anicteric sclerae. NECK: Supple. LUNGS: Clear to auscultation. HEART: S1, S2 without murmurs or rubs. ABDOMEN: Soft and nontender. EXTREMITIES: No cyanosis or edema. LABORATORY FINDINGS: The chemistry panel shows a serum sodium 139, potassium 4.3, chloride 98, CO2 26, BUN 21, and creatinine 1.1. Blood sugar is 132. CBC shows a WBC of 5.2, hematocrit 49, hemoglobin 16.4, and platelets 348,000. The patient had a CT of the head in the emergency room showing small cortical infarct, probably subacute with high right parietal lobe. There is no mention of any mass. ASSESSMENT: This is a 42-year-old white male, who was admitted after suicidal thoughts drinking half a gallon of vodka. He has history of depression, history of seizures and he was recently told that he has a brain tumor, which was not confirmed on the CT scan here at [place]. PLAN: The patient will be seen by neurologist as well as Psychiatry. His medication will be adjusted. Once he is medically stable, he will need to be transferred to a psychiatric facility. Case was discussed with the patient and also RN. López Pink M.D. DR: IVY JOB#: [id number] CC:
--- NOTE | 2018-05-28 02:30 | NUR ---
NURSE NOTES: Patient in bed asleep with no S/S of distress noted. Will continue to monitor
--- NOTE | 2018-05-28 07:23 | NUR ---
HAND-OFF: Report given to Leonila Barron RN. Patient in stable condition, endorsed plan of care.
--- NOTE | 2018-05-28 07:50 | NUR ---
NURSE NOTES: Report received from Derek HAYNES. Pt is resting in his bed with open eyes. Pt is awake, alert, and oriented x4. Pt O2sat 97% @ RA, breathing even and unlabored. No acute distress, NO c/o pain noted at this time. IV asymptomatic, patent, and intact. Bed placed in lowest position with brake engaged, side rails up x2. Call light and frequent used objects are within reach. Will continue to monitor.
[2018-05-28 08:00] VITALS: BP 137/82
[2018-05-28] MEDS: Thiamine 100mg tab ORAL SCH (09:08)
[2018-05-28] MEDS: Aspirin EC 325mg tab ORAL SCH (09:08)
[2018-05-28] MEDS: Lisinopril 10mg tab ORAL SCH (09:08)
[2018-05-28] MEDS: hydroCHLOROthiazide 12.5mg TAB ORAL SCH (09:08)
[2018-05-28 11:52] VITALS: BP 131/93
--- NOTE | 2018-05-28 13:55 | NUR ---
CASE MANAGEMENT:REVIEW 05/28/17 SI: ALCOHOL INTOXICATION FOLLOWED BY SUICIDAL IDEATION CT HEAD(+) PROBABLE SUBACUTE CORTICAL INFARCT 99.0 66 18 131/93 96% ON RA IS: RISPERDAL PO QHS THIAMINE PO QD FOLATE PO QD ASA PO QD PEPCID PO QD LEXAPRO PO QD LISINOPRIL PO QD HCTZ PO QD LIBRIUM PO TID PRN : TELEMETRY STATUS PLAN: WAITING FOR [facility] TO ACCEPT THIS PATIENT FOR TRANSFER PATIENT'S INSURANCE IS SOLELY [facility]
--- NOTE | 2018-05-28 14:16 | NUR ---
TRANSFER UPDATE FAXED ALL CLINICALS AND REVIEWS TO [facility] T: [phone] F: [phone] AWAITING ACCEPTANCE FROM [facility] MAY NEED TO BE DISCHARGED
--- NOTE | 2018-05-28 14:33 | General Progress Note ---
Assessment/Plan Assessment/Plan discussed with Dr darcy DODGE today Subjective Allergies: Coded Allergies: No Known Allergies (Unverified , 03/01/18) Subjective feels ok not suicidal Objective Last 24 Hour Vital Signs Date Time Temp Pulse Resp B/P (MAP) Pulse Ox O2 Delivery O2 Flow Rate FiO2 05/28/18 12:00 86 05/28/18 11:52 99.0 66 18 131/93 (106) 96 05/28/18 09:08 137/82 05/28/18 09:00 Room Air 05/28/18 08:00 64 05/28/18 08:00 98.5 69 18 137/82 (100) 96 05/28/18 04:00 72 05/28/18 00:00 68 05/28/18 00:00 97.5 61 17 124/76 (92) 98 05/27/18 21:00 Room Air 05/27/18 20:00 98.0 60 17 138/87 (104) 97 05/27/18 20:00 62 05/27/18 18:10 63 05/27/18 16:00 98.2 73 20 130/78 (95) 97 Intake and Output 05/27/18 05/28/18 19:00 07:00 Intake Total 100 ml Balance 100 ml Intake Oral 100 ml # Voids 3 Height (Feet): 5 Height (Inches): 9.00 Weight (Pounds): 180 Cardiovascular: normal rate Respiratory/Chest: lungs clear López Pink MD May 28, 2018 14:33
--- NOTE | 2018-05-28 15:03 | Neurology Progress Note ---
Interim History Interim History Interim History Mr. Freeman feels much better. He is less tremulous, less sweaty and feels that the mind is clearer. Plans are to go home today. He then plans to go to [place] where his family lives and see if [facility]. He denies any new neurologic symptoms. Review of Systems Neuro Review of Systems Benign. Objective Physical Exam Last Vital Signs Date Time Temp Pulse Resp B/P (MAP) Pulse Ox O2 Delivery O2 Flow Rate FiO2 05/28/18 12:00 86 05/28/18 11:52 99.0 18 131/93 (106) 96 05/28/18 09:00 Room Air 05/26/18 12:13 100 Neurologic Exam Objective PHYSICAL EXAMINATION: GENERAL: He is a well-developed, well-nourished, pleasant gentleman, lying in bed, in no acute distress. HEAD: Normocephalic and atraumatic. EENT: Examination benign. NECK: No neck rigidity was observed. NEUROLOGICAL EXAMINATION: MENTAL STATUS EXAMINATION: He was awake and alert. He was oriented to person, place, and time. He was able to recall 3/3 words immediately, after 1 minute and after 3 minutes on the second trial. He was able to remember presidents Trump through [place], but could not remember presidents prior to that. His mathematical skills were fairly good. His visuospatial function was preserved. SPEECH: He had no dysarthria. LANGUAGE: He had no aphasia. CRANIAL NERVE EXAMINATION: II: The visual oquendo were intact on confrontation testing. III, IV & : The external ocular movements were full and the pupils 3 mm in diameter, equal, round, regular, and reactive to light. V: He had normal facial sensations, and the temporales, masseters, and pterygoids functioned normally. VII: He had normal facial expressions and no facial asymmetry. VIII: He was able to hear well bilaterally and had no nystagmus. IX: The palate moved symmetrically on phonation. X: He had no hoarseness of voice. XI: The sternocleidomastoids and trapezii functioned normally. XII: The tongue was in the midline without any fasciculations or atrophy. MOTOR SYSTEM: The tone was normal in all four extremities. Examination of muscle mass revealed no focal wasting. Examination of power revealed G 5/5 power in all muscle groups. SENSORY EXAMINATION: He had intact sensations to pinprick, light touch, and graphesthesia. COORDINATION: He performed well on deibvy-dv-wklz and yypm-vm-llwf testing. On Romberg test, he swayed, but did not fall to one side or the other. REFLEXES: 1+ and bilaterally symmetrical at the biceps, triceps, brachioradialis and knees. 0 at both ankles. The plantar responses were flexor bilaterally. STANCE: He had a minimally wide-based, but stable stance. GAIT: He walked with a minimally wide-based, but stable gait. Abnormal movements: Tremor (7-8 Hz): G 0/4 at rest increasing to G 1/4 with effort. Impression/Recommendations Diagnostic Impression 1. Mr. Will Freeman is a 42-year-old, right-handed, gentleman, who does have a past history of hypertension, posttraumatic stress disorder, and depression, who from time to time binge drinks. He has recently also been diagnosed with a brain mass, the exact pathology of which is unknown at this point in time. He was binge drinking for a few days and then hospitalized for behaving in an erratic manner. At this point in time, he feels relatively well except for feeling anxious, tremulous, and sweaty. 2. He feels much better. He is less tremulous, less sweaty and feels that the mind is clearer. Plans are to go home today. He then plans to go to [place] where his family lives and see if [facility]. He denies any new neurologic symptoms. 3. On neurological examination at this time, he does have problems with recent and remote memory, but no focal or lateralizing findings. He does have a 7- 8 Hz tremor of the outstretched hand. He also stands with a wide base and walks with a wide base. 4. The CT scan of the brain without contrast reveals a lesion in the high right parietal area. 5. Laboratory data obtained thus far have revealed a relatively normal CBC. A chemistry panel with a BUN elevated to 21, glucose elevated to 132 and AST elevated at 46. A toxicology screen which reveals a serum alcohol level of 404 mg/dL. 6. The patient's history, neurological examination, and laboratory data associated with his imaging studies are most compatible with alcohol intoxication with level of 404 mg/dL on admission, and now alcohol withdrawal symptoms. 7. 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 Recommendations 1. The patient was instructed to follow up with his neurologist and neurosurgeon at the [facility] as soon as possible. 2. Brain biopsy as planned as the patient has been told that his MRI imaging is consistent with tumor. 3. Patient told to stay away from alcohol consumption. Leif Finnegan M.D., M.S.P.H. Leif Finnegan MD May 28, 2018 15:03
--- NOTE | 2018-05-28 15:46 | NUR ---
NURSE NOTES: patient discharged with all his belonging as ordered. patient vital signs stable no c/o pain and SOB.discharge instruction given per protocol. patient verbalized understanding of given instruction.
--- NOTE | 2018-05-28 22:24 | General Progress Note ---
Assessment/Plan Problem List: (1) Substance use disorder ICD Codes: F19.90 - Other psychoactive substance use, unspecified, uncomplicated SNOMED: 49815831 (2) Psychotic disorder ICD Codes: F29 - Unspecified psychosis not due to a substance or known physiological condition SNOMED: 61712904 Status: unchanged Assessment/Plan lexapro 20mg qam dc seroquel risperdal 2mg qhs the pt maybe discharged after medical clearance Subjective Allergies: Coded Allergies: No Known Allergies (Unverified , 03/01/18) Subjective the pt stated that [place] like [place] go [place] he denies si Objective Last 24 Hour Vital Signs Date Time Temp Pulse Resp B/P (MAP) Pulse Ox O2 Delivery O2 Flow Rate FiO2 05/28/18 12:00 86 05/28/18 11:52 99.0 66 18 131/93 (106) 96 05/28/18 09:08 137/82 05/28/18 09:00 Room Air 05/28/18 08:00 64 05/28/18 08:00 98.5 69 18 137/82 (100) 96 05/28/18 04:00 72 05/28/18 00:00 68 05/28/18 00:00 97.5 61 17 124/76 (92) 98 Intake and Output 05/27/18 05/28/18 18:59 06:59 Intake Total 100 ml Balance 100 ml Intake Oral 100 ml # Voids 3 Height (Feet): 5 Height (Inches): 9.00 Weight (Pounds): 180 General Appearance: no apparent distress, alert Neurologic: oriented x 3, responsive, depressed affect Bettye Montiel MD May 28, 2018 22:24
--- NOTE | 2018-05-31 08:27 | Discharge Summary ---
Discharge Summary Discharge Summary _ DATE OF ADMISSION: 05/26/2018 DATE OF DISCHARGE: 05/28/2018 DISCHARGED BY: Dr. Bishnu Pink REASON FOR ADMISSION: 42 years old male with past medical history of seizure disorder, apparently alcohol related, hypertension, depression, posttraumatic stress disorder from being in [place], was brought to emergency department by ambulance and police on 5150 hold. Patient apparently had suicidal thoughts. Patient reported drinking half a gallon of vodka, because he wanted to kill himself. Patient reported that about a month ago he was in the [facility] , and was told that he had a brain tumor CT of the head done in the emergency room revealed small cortical infarct , probably subacute , in high right parietal lobe. Laboratory workup was unremarkable. Urine toxicology screen was positive for benzodiazepine. Serum alcohol level was 404. Patient was admitted for further management. CONSULTANTS: neurologist Dr. Finnegan psychiatrist [facility]SE: Patient admitted to telemetry floor. Patient started on the IV fluids and supplements with thiamine and folic acid. Librium was on standby as needed for agitation. GI prophylaxis provided. Neurology and psychiatric evaluation were requested. Neurologist closely reviewed CT scan of the brain without contrast and concluded that patient had a lesion in the high right parietal area. er neurologist , patient brain lesion was probably representing tumor, that he was diagnosed at the [facility] . The patient's history ,neurological examination , laboratory data and associated with his imaging studies were most compatible with alcohol intoxication with level of 404 upon admission and possible withdrawal symptoms . Neurologist recommended continue with B12 and folic acid supplementation. Follow-up with neurologist and neurosurgeon at the [facility] as soon as possible and proceed with a brain biopsy as planned (as the patient had been told that his MRI image was consistent with tumor). Patient was counseled on abstinence from alcohol and other ilicit street drugs. Psychiatrist seen and evaluated patient , and optimized psychiatric medication regimen. Patient started on Lexapro 20 mg in the morning and Risperdal 2 mg at nighttime. Patient further denied suicidal thoughts and agree to follow up at [facility] for brain lesion biopsy. Psychiatrist cleared patient for discharge after medical clearance. Blood pressure was managed with SHANNAN inhibitor,remained stable. Supportive care provided. Patient was stable for discharge FINAL DIAGNOSES: Alcohol intoxication Possible alcohol withdrawal Brain lesion , most probably representing the tumor (that was diagnosed at the [facility]) Substance use disorder Psychotic disorder DISCHARGE MEDICATIONS: See Medication Reconciliation list. DISCHARGE INSTRUCTIONS: Patient was discharged home. [facility]-up with [facility] with neurologist and neurosurgeon as soon as possible for further management. I have been assigned to dictate discharge summary for this account. I was not involved in the patient's management. Cristiane Trinh NP May 31, 2018 08:27
== END 2018-05-28 15:33 | disposition home or self-care (01) | DRG 897 ==
LOC: EDBD 12:09 → EMR 12:26 → 2E 15:59 → EDBEDREQ 16:09
DX: F10.239 Alcohol dependence with withdrawal, unspecified (principal); F10.229 Alcohol dependence with intoxication, unspecified; D49.6 Neoplasm of unspecified behavior of brain; F29 Unspecified psychosis not due to a substance or known physiological condition; Y90.8 Blood alcohol level of 240 mg/100 ml or more; Z86.73 Personal history of transient ischemic attack (TIA), and cerebral infarction without residual deficits; F19.10 Other psychoactive substance abuse, uncomplicated; I10 Essential (primary) hypertension; F43.10 Post-traumatic stress disorder, unspecified
CPT/HCPCS: 36415; 70450; 80053; 80307; 80329; 85025; 93005; 96360; 99285